=== PATIENT | male | born 1965 | race Caucasian/White ===

== ENCOUNTER → 2019-09-22 08:10 | Outpatient (CLI) | payer OTHER ==
--- NOTE | 2019-09-25 16:48 | ST ---
PATIENT:DEAN ESPARZA MEDICAL RECORD: [id number] SEX: M LOCATION:[facility] ORDER #: ADMISSION DATE: 09/22/19 AGE OF PATIENT: 54 REFERRING PHYSICIAN: INTERPRETING PHYSICIAN: ELADIA SILVER MD DATE OF SERVICE: 09/22/2019 INDICATIONS: Angina, shortness of breath, hypertension, and hyperlipidemia. He was exercised on a standard Ashwin protocol for 8 minutes achieving 85% max target heart rate response with 27 mCi of sestamibi injected at peak stress, 9 mCi used previously for rest images. FINDINGS: Gated SPECT reveals a preserved ejection fraction at 61% with decreased thickening and brightening throughout the inferior segments. SPECT imaging: Cardiolite was used as myocardial perfusion agent. There is a fixed perfusion defect inferiorly compatible with previous inferior myocardial infarction; however, there is reversibility laterally and anteriorly. Laterally, the degree of reversibility is moderate, the amount of myocardium involved is moderate. Anteriorly, the degree of reversibility is mild, the amount of myocardium involved is moderate. OVERALL IMPRESSION: This is a high-risk abnormal nuclear stress test. Has fixed perfusion defect inferiorly, reversible ischemia anteriorly and laterally suggestive of multivessel hemodynamically significant coronary artery disease. TRANSINT:[id number] Voice Confirmation ID: [id number] DOCUMENT ID: [id number] ELADIA SILVER MD at 1648 CC: UZMA WHITMORE [id number] DICTATION DATE: 09/23/19 0900 PREPARATION SUPERVISOR: 09/24/19 0719 DEP CLI 09/22/19 [facility] [address] [place] [address]
--- NOTE | 2019-09-25 16:48 | EC ---
PATIENT:DEAN ESPARZA DATE OF SERVICE: 09/22/19 SEX: M MEDICAL RECORD: [id number] DATE OF : 65 [facility] AGE OF PATIENT: 54 ADMISSION DATE: 09/22/19 REFERRING PHYSICIAN: INTERPRETING PHYSICIAN: ELADIA PALACIOS MD ECHOCARDIOGRAM REPORT ECHO CHARGES 4 ECHO COMPLETE Date: 09/22/19 CLINICAL DIAGNOSIS: HTN/CHEST PAIN/DYSPNEA ON EXERTION ECHOCARDIOGRAPHIC MEASUREMENTS (adult normal given) AC root (d.<3.7cm) 3.4 cm LV Septum d (<1.2 cm> 1.5 cm Valve Excursion 1.7 cm LV Septum (systole) 1.6 cm Left Atria (s.<4.0cm> 3.5 cm LVPW d(<1.2cm) 1.6 cm RV (d.<2.3cm) 5.0 cm LVPW (sytole) 1.8 cm LV diastole(<5.6CM) 5.3 cm MV E-F(>70mm/sec) cm LV systole 3.3 cm LVOT Diameter cm MV exc.(>10mm) 1.7 cm Est.ejection fraction (50-75%) % DOPPLER: LVIT cm/sec A 85.0 cm/sec E 100.0 cm/sec LA cm/sec RVSP 31 mmHg LVOT 123 cm/sec AOP1/2T m/s Asc. Ao 151 cm/sec RVOT 86 cm/sec RA cm/sec PA 123 cm/sec AV Gradient Peak 9.12 mmHg AV Mean 4.6 mmHg AV Area 3.1 cm MV Gradient Peak 5.58 mmHg MV Mean 2.39 mmHg MV Area cm COMMENTS: Applied Mathematician: Speedy MERCADO Vice President Of Human Resources: 1 Dr. Palacios TAPE# PACS Pericardial Effusion N DATE OF SERVICE: Echocardiogram FINDINGS: 1. Left ventricular chamber size is within normal limits. Left ventricular systolic function is normal. Overall ejection fraction estimated at 60% to 65%. 2. Left atrium is within normal limits at 3.5 cm. Right atrium and right ventricle chamber sizes are within normal limits. 3. Valvular structures have normal structure and motion. ECHOCARDIOGRAM REPORT [id number] DEAN ESPARZA 4. Doppler interrogation reveals mild mitral regurgitation, mild tricuspid regurgitation, no other valvular insufficiency or stenosis. Pulmonary systolic pressure estimated at 31 mmHg. 5. No evidence of pericardial effusion or left ventricular thrombus. TRANSINT:[id number] Voice Confirmation ID: [id number] DOCUMENT ID: [id number] ELADIA PALACIOS MD at 1648 CC: [id number] DICTATION DATE: 09/22/19 1334 MUSCULOSKELETAL PHYSICIAN: 09/22/19 2304 DEP CLI 09/22/19 [place] [id number] [place] [id number]
== END | disposition home or self-care (01) ==
LOC: D.HCCECHO 08:10 → D.HCCARDIO 09:00 → D.HCCECHO 09:30
PROVIDERS: ATTEND Internal Medicine Interventional Cardiology
DX: I10 Essential (primary) hypertension (principal); R07.9 Chest pain, unspecified

== ENCOUNTER 2019-09-29 08:58 | Outpatient (CLI) | payer OTHER ==
[~2019-09-29] VITALS: Ht 185.4 cm; Wt 121.1 kg
--- NOTE | ~2019-09-29 | HEMODYNAMI ---
PATIENT:DEAN ESPARZA MEDICAL RECORD: [id number] : 65 LOCATION:[facility] ADMISSION DATE: 09/29/19 Generatedon:09/29/201912:58 Patient name: DEAN ESPARZA Patient #: [id number] SSN: [id number] : 1965 Date of study: 09/29/2019 Page: Of Hemodynamic Procedure Report Patient Data Patient Demographics Procedure consent was obtained First Name: DEAN Gender: Male Last Name: ISAIAS : 1965 Middle Initial: L Age: 54 year(s) Patient #: [id number] Race: SSN: [id number] Additional ID: [id number] Contact details Address: [place] [address] State: [place] City: [place] Zip code: [address] Past Medical History Allergies Allergen Reaction Date Comments Reported Other allergy 09/29/2019 ASPIRIN/NAPROXEN(FROM aLEVE) Admission Admission Data Admission Date: 09/29/2019 Admission Time: 8:58 Arrival Date: 09/29/2019 Arrival Time: 0:00 Insurance Payor: Private health insurance [facility] #: [id number] Height (in.): 72.83 BSA: 2.43 (m2) Height (cm.): 185 BMI: 35.35 (kg/m2) Weight (lbs.): 266.76 Weight (kg.): 121 Lab Results Lab Result Date: 09/29/2019 Lab Result Time: 0:00 Biochemistry Name Units Result Min Max BUN mg/dl 15 --(--*-)-- 7 18 Creatinine mg/dl 1 --(--*-)-- 0.6 1.3 eGFR ml/min 82.59057 -*(----)-- 90 120 NONAFRICAN CBC Name Units Result Min Max Hematocrit % 43.9 --(*---)-- 42 54 Hemoglobin g/dl 14.9 --(-*--)-- 13.5 17.5 Procedure Procedure Types Cath Procedure Diagnostic Procedure [facility] w/Coronaries FFR/IVUS FFR Initial Sedation Charges Moderate Sedation up to 15 minutes PCI Procedure Coronary Stent Coronary Stent Initial Hemochron ACT Test Procedure Description Procedure Date Procedure Date: 09/29/2019 Procedure Start Time: 12:36 Procedure End Time: 12:50 Procedure Staff Name Function Ace Palacios MD Performing Physician Nitesh Pickard RN Nurse Vanessa Shell RT Scrub Apolonia Post RT Monitor Taylor Castañeda RT Monitor Procedure Data Cath Procedure Fluoroscopy Diagnostic fluoroscopy Total fluoroscopy Time: 3.2 time: 3.2 min min Diagnostic fluoroscopy Total fluoroscopy dose: 603 dose: 603 mGy mGy Contrast Material Contrast Material Type Amount (ml) Isovue 300 84 Entry Location Entry Primary Successful Side Size Upsize Upsize Entry Closure Marcial ccessful Closure Location (Fr) 1 (Fr) 2 (Fr) Remarks Device Remarks Radial Right 6 Fr Mechanical artery Short Compression Estimated blood loss: 5 ml Diagnostic catheters Device Type Used For End Catheter Placement DIAGNOSTIC [place] 110cm 5 Procedure Fr catheter ([id number]) Procedure Complications No complications Procedure Medications Medication Administration Route Dosage Oxygen etCO2 Nasal cannula 2 l/min Lidocaine 2% added to field 20 Heparin Flush Bag added to field 2 bags (1000units/500ml NS) 0.9% NaCl I.V. 100 ml/hr Radial Cocktail I.A. 1 syringe (Verapamil 2mg/Nitro 400mcg/Heparin 1500units) Versed I.V. 2 mg Fentanyl I.V. 100 mcg Versed I.V. 1 mg Fentanyl I.V. 50 mcg Versed I.V. 1 mg Fentanyl I.V. 50 mcg Fentanyl I.V. 50 mcg Heparin Bolus I.V. 4000 units Integrilin (Bolus I.V. 11.3 ml 2mg/ml) Plavix P.O. 600 mg Hemodynamics Rest BSA: 2.43 (m2) HGB: 14.9 (g/dl) O2 Consumption: Estimated: 294.15 (ml/min) O2 Co nsumption indexed: Estimated:121.05 (ml/min/m) Heart Rate: 76 (bpm) Pressure Samples Time Site Value (mmHg) Purpose Heart Use Rate(bpm) 12:39 LV /42,89 Snapshot 83 Snapshots Pre Cath Intra NCS Post Cath Vital Signs Time Heart Resp SPO2 etCO2 NIBP (mmHg) Rhythm Pain Sedation Rate (ipm) (%) (mmHg) Status Level (bpm) 12:15:17 72 19 96 32 161/91(129) NSR 0 (11) 10(A) , No pain 12:19:39 67 12 96 0 136/86(116) NSR 0 (11) 10(A) , No pain 12:23:57 77 12 95 42.4 149/93(113) NSR 0 (11) 10(A) , No pain 12:28:21 78 15 96 48.3 150/93(123) NSR 0 (11) 10(A) , No pain 12:32:52 73 12 95 16.3 136/80(103) NSR 0 (11) 10(A) , No pain 12:37:14 71 18 95 46.9 146/82(120) NSR 0 (11) 9(A) , No pain 12:41:42 82 15 94 17.1 118/78(97) NSR 0 (11) 9(A) , No pain 12:45:58 77 13 94 29.7 136/81(96) NSR 0 (11) 9(A) , No pain 12:50:20 79 14 94 47.5 131/79(106) NSR 0 (11) 10(A) , No pain Medications Time Medication Route Dose Verified Delivered Reason Not es Effectiveness by by 12:14:59 Oxygen etCO2 2 l/min Ace Buffie used for Nasal Philip Pickard RN procedure cannula 12:15:06 Lidocaine 2% added 20ml Ace Priestrey for local to vial Philip Palacios MD anesthetic field 12:15:17 Heparin Flush added 2 bags Ace Bello used for Bag to Philip Palacios MD procedure (1000units/500ml field NS) 12:15:25 0.9% NaCl I.V. 100 Ace Buffie Per physician ml/hr Philip Pickard RN 12:31:59 Versed I.V. 2 mg Ace Buffie for sedation Philip Pickard RN 12:32:06 Fentanyl I.V. 100 mcg Ace Buffie for sedation Philip Pickard RN 12:35:09 Versed I.V. 1 mg Ace Buffie for sedation Philip Pickard RN 12:35:15 Fentanyl I.V. 50 mcg Ace Buffie for sedation Philip Pickard RN 12:38:18 Radial Cocktail I.A. 1 Ace pineda (Verapamil syringe Philip Palacios MD vasodilation 2mg/Nitro 400mcg/Heparin 1500units) 12:38:26 Versed I.V. 1 mg Ace Dowling for sedation Philip Pickard RN 12:38:29 Fentanyl I.V. 50 mcg Ace Dowling for sedation Philip Pickard RN 12:41:59 Fentanyl I.V. 50 mcg Ace Dowling for sedation Philip Pickard RN 12:43:57 Heparin Bolus I.V. 4000 Ace Dowling for sae ified units Philip Pickard RN anticoagulation with dr palacios 12:48:08 Integrilin I.V. 11.3 ml Ace pineda was lat[place] (Bolus 2mg/ml) Philip Pickard RN antiplatelet 8.7 ml therapy of vial 12:49:39 Plavix P.O. 600 mg Ace Pickard RN antiplatelet therapy Procedure Log Time Note 11:50:15 Procedure Status Elective Heart Cath (OP). 11:50:19 Taylor Castañeda RT(R) sent for patient. Start room use. 11:50:21 Time tracking: Regular hours (M-F 7:00 - 5:00) 11:50:28 Plan of Care:Hemodynamics will remain stable., Cardiac rhythm will remain stable., Comfort level will be maintained., Respiratory function will remain adequate., Patient/ family verbilizes understanding of procedure., Procedure tolerated without complication., Recovers from procedure without complications.. 11:50:54 Arrival Date: 09/29/2019 12:00:00 AM 11:51:15 Insurance Payor : Private health insurance 11:53:54 Patient Height : 72.83 inches 11:53:58 Patient Weight : 266.76 lbs 11:55:31 Patient allergic to Other allergyASPIRIN/NAPROXEN(FROM aLEVE) 11:56:36 ACC Patient presents with Stable Angina CCS Anginal Class 2--Slight limitation of ordinary activity. 11:56:44 Patient received from Pre/Post Procedure Room to CCL 1 Alert and oriented. Tansferred to table in Supine position. 11:57:13 Patient arrived from Pre/Post Procedure Room to CCL 1. Patient remains on bed/stretcher for procedure. 11:57:17 Signed procedure consent form obtained from patient. 11:57:18 Warm blankets applied, and leida hugger turned on for patient comfort. 11:57:19 Correct patient and procedure confirmed by team. 11:58:04 Lab Result : BUN 15 mg/dl 11:58:04 Lab Result : Hematocrit 43.9 % 11:58:04 Lab Result : eGFR NONAFRICAN 82.90095 ml/min 11:58:04 Lab Result : Creatinine 1 mg/dl 11:58:04 Lab Result : Hemoglobin 14.9 g/dl 12:01:40 H&P Date Dictated: 09/10/2019 Within 30 days and on chart., H&P Addendum completed by physician on day of procedure. (MUST COMPLETE FOR ALL OUTPATIENTS). 12:01:41 Pre-procedure instructions explained to patient. 12:01:42 Pre-procedure instructions explained to patient. 12:01:44 Family in patients room. 12:01:48 Patient NPO since Midnight. 12:01:50 Is the patient allergic to Iodine/contrast media? No. 12:01:52 Is patient on blood thinner?No 12:01:54 Patient diabetic? No. 12:01:58 Previous problem with sedation/anesthesia? No ? 12:02:01 Snore? Yes 12:02:02 Sleep apnea? No 12:02:03 Deviated septum? No 12:02:04 Opens mouth fully? Yes 12:02:09 Sticks out tongue? Yes 12:02:11 Airway obstruction? No ? 12:02:13 Dentures? No ? 12:02:19 Pre procedure: right dorsailis pedis pulse 0-Absent 12:02:23 Modified Ty's test Ulnar < 7 seconds 12:02:25 Patient pain scale 0/10 ?. 12:02:33 Lab results completed and on chart. 12:03:07 Right Radial & Right Groin area was prepped with chlora-prep and draped in sterile fashion 12:03:08 Alarms reviewed by R. N. 12:03:08 Sharps counted by scrub and verified by R.N. 12:13:27 Use device set Radial Dx or PCI 12:13:30 ACIST Syringe (57092) opened to sterile field. 12:13:30 Medline Cath Pack ([id number]) opened to sterile field. 12:13:32 Bag Decanter () opened to sterile field. 12:13:33 ACIST Hand Control (84719) opened to sterile field. 12:13:34 ACIST Manifold (84821) opened to sterile field. 12:13:36 Tegaderm 4 x 4 (1626W) opened to sterile field. 12:13:37 MBrace Wrist Support ([id number]) opened to sterile field. 12:13:39 EMERALD Guide Wire (371-788) opened to sterile field. 12:13:40 SHEATH 6FR RAIN (2594425) opened to sterile field. 12:13:52 ECG and BP/O2 sat monitors applied to patient. 12:13:53 Vital chart was started 12:13:55 Baseline sample Acquired. 12:14:04 Rhythm: sinus rhythm 12:14:06 Full Disclosure recording started 12:14:08 - 12:14:59 Oxygen 2 l/min etCO2 Nasal cannula was administered by Nitesh Pickard RN; used for procedure; Verbal order read back and verified. 12:15:06 Lidocaine 2% 20ml vial added to field was administered by Ace Palacios MD; for local anesthetic; Verbal order read back and verified. 12:15:17 Heparin Flush Bag (1000units/500ml NS) 2 bags added to field was administered by Ace Palacios MD; used for procedure; Verbal order read back and verified. 12:15:25 0.9% NaCl 100 ml/hr I.V. was administered by Nitesh Pickard RN; Per physician; Verbal order read back and verified. 12:21:02 Zero performed for pressure channel P1 12:26:18 IV patent on arrival in right forearm with 0.9% NaCl at [facility]. 12:27:30 Stress Test: yes; abnormal multi vessel 12:27:42 Maximum allowable contrast dose (3.7 X eGFR X 0.75)230 ml. 12:27:48 2) 60-89 Mildly reduced kidney function, and other findings (as for stage 1) point to kidney disease. 12:27:54 Fire Safety Assessment: A--An alcohol-based skin anteseptic being used preoperatively., C--Open oxygen or nitrous oxide is being used., D--An ESU, laser, or fiber-optic light is being used. 12:27:59 Physical assessment completed. ASA score P 2 - A patient with mild systemic disease as per Ace Palacios MD. 12::15 --------ALL STOP TIME OUT------ 12::16 Final Timeout: patient, procedure, and site verified with staff and physician. All members of the team are in agreement. 12:28:20 Sedation plan: IV Moderate Sedation Medication:Versed, Fentanyl 12:28:25 Right Radial & Right Groin site verified by team. 12:31:59 Versed 2 mg I.V. was administered by Nitesh Pickard RN; for sedation; Verbal order read back and verified. 12:32:06 Fentanyl 100 mcg I.V. was administered by Nitesh Pickard RN; for sedation; Verbal order read back and verified. 12:35:09 Versed 1 mg I.V. was administered by Nitesh Pickard RN; for sedation; Verbal order read back and verified. 12:35:15 Fentanyl 50 mcg I.V. was administered by Nitesh Pickard RN; for sedation; Verbal order read back and verified. 12:36:36 Procedure started. 12:36:44 Local anesthetic to right femoral artery with Lidocaine 2% by Ace Palacios MD.INITIAL ACCESS ONLY 12:37:31 A 6 Fr Short sheath was inserted into the Right Radial artery 12:38:07 A DIAGNOSTIC [place] 110cm 5 Fr catheter ([id number]) was advanced over the wire and used for Procedure. 12:38:18 Radial Cocktail (Verapamil 2mg/Nitro 400mcg/Heparin 1500units) 1 syring e I.A. was administered by Ace Palacios MD; for vasodilation; Verbal order read back and verified. 12:38:26 Versed 1 mg I.V. was administered by Nitesh Pickard RN; for sedation; Verbal order read back and verified. 12:38:29 Fentanyl 50 mcg I.V. was administered by Nitesh Pickard RN; for sedation; Verbal order read back and verified. 12:39:05 LV hemodynamics recorded. 12:39:06 LV gram done using DUNAWAY 12:39:08 Injector settings: Ml/sec: 5, Volume: 15, 12:39:15 EF : 60 % 12:39:31 LCA angiography performed. 12:39:34 Injector settings: Ml/sec: 3, Volume: 6, 12:40:23 RCA angiography performed. 12:40:26 Injector settings: Ml/sec: 3, Volume: 6, 12:40:27 Catheter removed. 12:40:30 ACCDominant side:Right 12:40:32 Proceeding to intervention. 12:40:49 INFLATOR Merit BasixCompak (JF1314) opened to sterile field. 12:40:49 [place] Verrata Plus pressure wire (18049F) opened to sterile field. 12:41:28 GUIDE 6FR EBU 3.5 catheter ([id number]) opened to sterile field. 12:41:59 Fentanyl 50 mcg I.V. was administered by Nitesh Pickard RN; for sedation; Verbal order read back and verified. 12:42:26 6 Fr EBU 3.5 guide catheter was inserted over the wire 12:42:32 FFR/IFR wire advanced. 12:42:33 Baseline FFR 1. 12:43:57 Heparin Bolus 4000 units I.V. was administered by Nitesh Pickard RN; for anticoagulation; verified with dr palacios Verbal order read back and verified. 12:44:21 mLAD lesion measured at 0.82 with IFR 12:45:11 ACC Pre-intervention LINDSAY Flow is 3. 12:45:16 Pre PCI Site: [place] mLAD has 75% stenosis. 12:48:08 Integrilin (Bolus 2mg/ml) 11.3 ml I.V. was administered by Nitesh Pickard RN; for antiplatelet therapy; wasted 8.7 ml of vial Verbal order read back and verified. 12:48:09 Place stent Inflation Number: 1 A SAI RX 2.75 x 18 stent ([id number] ) was prepped and advanced across the Mid LAD 75. The stent was deployed at 13 JOHNNIE for 0:10 (min:sec) 0. 12:48:16 Stent catheter was removed intact over wire. 12:48:16 Wire removed. 12:48:17 Guide catheter removed. 12:48:19 ACC Post-intervention LINDSAY Flow is 3. 12:48:25 Post PCI Site: [place] mLAD has 0% stenosis. 12:48:30 ZEPHYR REGULAR TR BAND (060079) opened to sterile field. 12:48:41 Sheath removed intact; hemostasis achieved with Mechanical Compression to the Right Radial artery. 12:48:42 Procedure ended.(Physican Out) 12:49:10 Fluoroscopy time 03.20 minutes. 12:49:14 Fluoroscopy dose: 603 mGy 12:49:14 Flurop Dose total: 603 12:49:19 Dose Area Product 22861 mGy/cm. 12:49:23 Contrast amount:Isovue 300 84ml. 12:49:25 Maximum allowable dose exceeded? No. 12:49:26 Sharps counted by scrub and verified by R.N. 12:49:28 [place] band inflated with 10cc of air. 12:49:31 Insertion/operative site no bleeding no hematoma. 12:49:39 Plavix 600 mg P.O. was administered by Nitesh Pickard RN; for antiplatelet therapy; Verbal order read back and verified. 12:49:39 Post right radial artery:stable 12:49:42 Post Procedure Pulses reassessed and unchanged 12:49:44 Post procedure rhythm: unchanged. 12:49:47 Estimated blood loss: 5 ml 12:49:49 Post procedure instruction explained to patient.Patient verbalizes understanding. 12:49:50 Patient needs reinforcement of post procedure teaching. 12:50:18 Procedure type changed to Cath procedure, Diagnostic procedure, [facility], C w/Coronaries, FFR/IVUS, FFR Initial, Sedation Charges, Moderate Sedation up to 15 minutes, PCI procedure, Coronary Stent, Coronary Stent Initial, Hemochron ACT Test 12:50:19 Procedure and supply charges have been captured, reviewed, submitted an d are correct. 12:50:24 Procedure Complication : No complications 12:50:36 Vital chart was stopped 12:50:39 [facility] Findings: MVD- PCI performed (see procedure note) 12:50:41 Operative report dictated upon procedure completion. 12:50:41 See physician's report for complete and final results. 12:50:44 Report given to Pre/Post Procedure Room. 12:50:47 Patient transfered to Pre/Post Procedure Room with Stretcher. 12:50:50 Procedure ended. 12:50:50 Full Disclosure recording stopped 12:50:58 ACC-PCI Only Patient was given prescriptions, or instructed by Ace Palacios MD to start/continue the following medications upon discharge: Plavix 12:51:01 End room use (Document Last) 12:56:10 ACT drawn and resulted at 234 seconds. (normal therapeutic range 180-24 0 seconds). Intervention Summary Intervention Notes Time ActionType Lesion and Equipment Used Action# Pressure Duration Attributes 12:48:09 Place stent Mid LAD SAI RX 2.75 x 1 13 00:10 18 stent ([id number]) Device Usage Item Name Manufacture Quantity Catalog Hospital Part Current Minimal Lot# / Number Charge Number Stock Stock Serial# Code ACIST Syringe Acist 1 30189 804714 838587 620637 20 (22825) Medical Systems Inc Medline Cath Medline 1 [id number] 436232 84119 477966 5 Pack ([id number]) Bag Decanter Microtek 1 2002S 431130 07830 538162 5 (2001S) Medical Inc. ACIST Hand Acist 1 27766 022391 175378 915501 5 Control Medical (63899) Systems Inc ACIST Manifold Acist 1 86482 889810 119400 770419 5 (66792) Medical Systems Inc Tegaderm 4 x 4 3M 1 1626W 389887 900695 190669 5 (1626W) MBrace Wrist Advanced 1 140-0250-00 344032 50892 942567 5 Support Vascular ([id number]) Dynamics EMERALD Guide Cardinal 1 502-455 607579 650698 558024 5 Wire (502-455) Health SHEATH 6FR Cardinal 1 2666007 852969 0242393 774739 5 RAIN ([id number]) Health DIAGNOSTIC Terumo 1 405013 266254 226408 793936 5 [place] 110cm 5 Fr catheter (490564) INFLATOR Merit Merit 1 [id number] 550092 086784 587757 15 SitrionutOb Hospitalist Group Medical (XY5756) [place] 1 65976X 277378 846503102 222815 5 Verrata Plus pressure wire (83499J) GUIDE 6FR EBU Medtronic 1 [id number] 929363 92203 544308 3 3.5 catheter ([id number]) SAI RX 2.75 x Medtronic 1 [id number] 142103 7028734 952855 5 [id number] 18 stent ([id number]) ZEPHYR REGULAR Cardinal 1 776172 267052 5083290 029025 5 TR [facility] (866758) Signature Audit [place] Stage Time Signature Unsigned Intra-Procedure 09/29/2019 Apolonia Post 12:57:03 PM RT(R) Intra-Procedure 09/29/2019 Nitesh Pickard RN 12:57:42 PM Intra-Procedure 09/29/2019 Ace Palacios 12:58:00 PM [facility] [address] [place] [address]
--- NOTE | ~2019-09-29 | OP ---
PATIENT NAME: DEAN ESPARZA MEDICAL RECORD: [id number] :65 LOCATION:D[facility] ADMISSION DATE: SURGEON: ELADIA SILVER MD DATE OF OPERATION: 09/29/2019 DIAGNOSES: 1. PTCA stent LAD. 2. IFR. 3. Left heart catheterization. 4. Selective coronary angiography. 5. Left ventriculogram. INDICATION: Angina and coronary artery disease. PROCEDURE PERFORMED: After detailed description of risks, benefits as well as alternative therapies, the patient elected to proceed with angiogram and angioplasty. The right radial area was prepped and draped in normal sterile fashion. Right radial artery was cannulated via modified Seldinger technique with placement of 6-Kinyarwanda sheath. All catheters exchanged through this sheath. FINDINGS: Left ventriculogram was performed in standard 30-degree DUNAWAY view, reveals good cardiac wall motion, ejection fraction estimated at 55% to 60%. SELECTIVE CORONARY ANGIOGRAPHY: 1. Left main is with no significant angiographic disease. 2. Left anterior descending has 70% to 75% stenosis in the mid vessel and IFR was abnormal. 3. Left circumflex has moderate irregularities, but no flow-limiting stenosis. 4. Right coronary has moderate irregularities, but no flow-limiting stenosis. PTCA STENT OF THE LAD: The stent used was a 2.75 x 18 mm Gama. Result was 0% residual stenosis. OVERALL IMPRESSION: Successful percutaneous transluminal coronary angioplasty stent of the left anterior descending going from 70% to 75% initial stenosis to 0% residual. TRANSINT:[id number] Voice Confirmation ID: [id number] DOCUMENT ID: [id number] ELADIA SILVER MD CC: [id number] DICTATION DATE: 09/29/19 1250 MEAT BUTCHER: 09/29/192036 DEP CLI 09/29/19 [facility] [address] [place] [address]
[2019-09-29] MEDS ORDERED: LOSARTAN-HCTZ1 EAC1 PO (09:29)
[2019-09-29] MEDS ORDERED: ZOCOR20 MG PO (09:29)
[2019-09-29] MEDS ORDERED: DILTIAZEM 24HR240 M4 PO (09:30)
[2019-09-29 09:45] VITALS: BP 157/79; Ht 185.4 cm; Wt 121.1 kg
[2019-09-29 10:23] LABS: ALT (SGPT) 51 U/L (10-68); CALC OSMOLALITY 282 mosm/kg (275-300); CALCIUM 9.2 mg/dL (8.5-10.1); CARBON DIOXIDE 31.2 mmol/L (21.0-32.0); CHLORIDE - SERUM 105 mmol/L (98-107); CHOL - HDL RATIO 3.5 ratio (2.3-4.9); CHOLESTEROL, TOTAL 157 mg/dL (0-200); HDL CHOLESTEROL 45 mg/dL (32-96); LDL CHOLESTEROL 94 mg/dL (0-100); LDL-HDL RATIO 2.1 ratio (1.5-3.5); POTASSIUM - SERUM 3.8 mmol/L (3.5-5.1); SODIUM 141 mmol/L (136-145); TRIGLYCERIDE 94 mg/dL (30-200); UREA NITROGEN 15 mg/dL (7-18); eGFR NON AFRICAN AMERICAN 83 mL/min (90-120)
[2019-09-29 10:25] LABS: GLUCOSE 112 mg/dL (74-106)
[2019-09-29 10:26] LABS: BASOPHILS 0.3 % (0-2); EOSINOPHILS 3.8 % (0-7); HEMATOCRIT 43.9 % (42.0-54.0); HEMOGLOBIN 14.9 g/dL (13.5-17.5); IMMATURE GRANULOCYTES 0.3 % (0-5); LYMPHOCYTES 22.4 % (15-50); MCH 32.3 pg (26.0-34.0); MCHC 33.9 g/dL (31.0-37.0); MEAN PLATELET VOLUME 10.3 fL (7.4-10.4); NEUTROPHILS 64.2 % (40-80); PLATELET COUNT 210 10x3/uL (130-400); RBC 4.62 10x6/uL (4.20-6.10); RDW 12.9 % (11.5-14.5); WBC 6.7 10x3/uL (4.8-10.8)
--- NOTE | 2019-09-29 13:05 | NUR ---
PT RECEIVED VIA STRETCHER FROM DONKEY RIDE OPERATOR FOR RECOVERY. PT AWAKE, SLIGHTLY DROWSY. DENIES PAIN OR DISCOMFORT. IV PATENT INFUSING VIA ORDERS TO L ARM. PT PLACED ON CARDIAC MONITORS AND O2 VIA NC AT 2L. HR NSR RATE 68, BP 138/80, RR 12, SAT 95. ZYPHER BAND AND IMMOBILIZER IN PLACE, DRESSING CDI NO S/S HEMATOMA NOTED. ARM PINK AND WARM, CAP REFILL BRISK. PT INSTRUCTED NOT TO USE ARM, HE VERBALIZED UNDERSTANDING. CALL LIGHT IN REACH
[2019-09-29] MEDS ORDERED: PLAVIX75 MG PO (13:10)
[2019-09-29] MEDS ORDERED: BAYER CHEWABLE81 MG PO (13:11)
--- NOTE | 2019-09-29 13:32 | NUR ---
PT RESTING COMFORTABLY, DENIES PAIN OR DISCOMFORT. HOB ELEVATED, SANDWICH AND DRINK SERVED. R ARM PINK AND WARM, ZBAND AND IMMOBILIZER IN PLACE, DRESSING CDI NO S/S HEMATOMA. HR 69, BP 130/75, RR 16, SAT 95. CALL LIGHT IN REACH, FAMILY AT BEDSIDE.
--- NOTE | 2019-09-29 14:15 | NUR ---
PT RESTING COMFORTABLY, ZBAND AND IMMOBILIZER IN PLACE NO BLEEDING OR S/S HEMATOMA NOTED. VSS. CALL LIGHT IN REACH, FAMILY AT BS
--- NOTE | 2019-09-29 14:45 | NUR ---
PT RESTING W EYES CLOSED. ZBAND AND IMMOBILIZER IN PLACE, DRESSING REMAINS CDI NO S/S HEMATOMA. VSS. CALL LIGHT IN REACH, FAMILY AT BS.
--- NOTE | 2019-09-29 15:11 | NUR ---
PT REPOSITIONED HIMSELF IN BED USING ARMS. R WRIST W/O BLEEDING OR S/S HEMATOMA HR DROP TO 40'S, BP 74/38 PT STATES SLIGHTLY DIZZY. [facility], IVF OPENED. 1514 HR 45, BP 90/52, PT STATES FEELS SOME BETTER. WILL CONTINUE TO MONITOR. 1530 BP 118/67, HR 57, PT DENIES DIZZINESS OR ANY OTHER SYMPTOMS. R WRIST W ZBAND AND IMMOBILIZER IN PLACE. DRESSING REMAINS CDI NO S/S HEMATOMA
--- NOTE | 2019-09-29 16:07 | NUR ---
PT DOING WELL, ZBAND IN PLACE, 5CC AIR REMOVED W SMALL AMOUNT OF BLEEDING, 2CC AIR REPLACED BLEEDING STOPPED. HR 57, BP 121/67, RR 12. PT DENIES PAIN OR NEEDS AT THIS TIME.
--- NOTE | 2019-09-29 16:32 | NUR ---
ZBAND AND IMMOBILIZER REMAIN IN PLACE. 3 ADD'L CC AIR REMOVED FROM Z BAND, NO BLEEDING NOTED. NO S/S HEMATOMA. VSS. FAMILY REMAINS AT BS.
--- NOTE | 2019-09-29 16:45 | NUR ---
2 ADD'L CC AIR REMOVED FROM Z BAND, NO BLEEDING NOTED. DISCHARGE INSTRUCTIONS REVIEWED W PT AND FAMILY PRESENT, HE VERBALIZED UNDERSTANDING. IV REMOVED W CATH INTACT, MONITORS REMOVED AND PT UP TO DRESS FOR DISCHARGE.
--- NOTE | 2019-09-29 17:00 | NUR ---
ZBAND AND REMAINING AIR REMOVED W/O BLEEDING NOTED. 2X2 AND SM TEGADERM DRESSING APPLIED. IMMOBILIZER RE ADJUSTED. PT TO BR VIA WC, VOIDING W/O DIFFICULITY. PT THEN DISCHARGE VIA WC TO FAMILY WAITING IN PRIVATE VEHICLE. PT HAD ALL BELONGINGS AND DISCHARGE PAPERWORK
== END 2019-09-29 17:05 | disposition home or self-care (01) ==
LOC: D.CATH 08:58
PROVIDERS: ATTEND Internal Medicine Interventional Cardiology
DX: I25.119 Atherosclerotic heart disease of native coronary artery with unspecified angina pectoris (principal); R07.9 Chest pain, unspecified; I10 Essential (primary) hypertension; E78.5 Hyperlipidemia, unspecified; R06.09 Other forms of dyspnea

== ENCOUNTER → 2020-12-08 20:46 | Outpatient (CLI) | payer OTHER ==
[2019-09-29 09:45] VITALS: BMI 35.2
[~2020-12-08 20:46] MED LIST: BAYER CHEWABLE81 MG PO; DILTIAZEM 24HR240 M4 PO; LOSARTAN-HCTZ1 EAC1 PO; PLAVIX75 MG PO; ZOCOR20 MG PO
[2020-12-08 21:54] LABS: EOS BF 2 %; MACROPHAGES BF 60 %; NEUT - BF 5 %
== END | disposition home or self-care (01) ==
LOC: D.LABREF 20:46
PROVIDERS: ATTEND Orthopaedic Surgery
DX: M10.9 Gout, unspecified (principal)